=== PATIENT | female | born 1950 | race Caucasian/White ===

== ENCOUNTER → 2016-04-06 | Outpatient (CLI) | payer MEDICARE, OTHER ==
[~2016-04-06] MED LIST: CRANBERRY405 MG PO; CRESTOR40 MG PO; ELIQUIS5 MG PO; KLOR-CON M1010 MEQ PO; LASIX80 MG PO; NORPACE150 MG PO; ZEBETA10 MG PO
== END | disposition short-term general hospital (02) ==
LOC: CLPAIN 09:19
DX: M47.896 Other spondylosis, lumbar region (principal); M41.9 Scoliosis, unspecified

== ENCOUNTER → 2016-04-13 | Outpatient (CLI) | payer MEDICARE, OTHER | END | disposition short-term general hospital (02) | LOC: CLCARD 10:00 | DX: I48.0 Paroxysmal atrial fibrillation (principal); R07.9 Chest pain, unspecified; E78.5 Hyperlipidemia, unspecified; I34.0 Nonrheumatic mitral (valve) insufficiency; I11.0 Hypertensive heart disease with heart failure; I50.30 Unspecified diastolic (congestive) heart failure; Z79.899 Other long term (current) drug therapy ==

== ENCOUNTER → 2016-06-08 | Outpatient (CLI) | payer MEDICARE, OTHER | END | disposition short-term general hospital (02) | LOC: CLPAIN 01:20 | DX: M47.816 Spondylosis without myelopathy or radiculopathy, lumbar region (principal); M46.1 Sacroiliitis, not elsewhere classified; M41.9 Scoliosis, unspecified ==

== ENCOUNTER 2016-06-22 11:28 | Day surgery (SDC) | payer MEDICARE, OTHER | END 2016-06-22 12:50 | disposition short-term general hospital (02) | LOC: SURGOP 11:28 | PROC: 3E0U33Z Introduction of Anti-inflammatory into Joints, Percutaneous Approach (ICD-10-PCS; principal; 2016-06-22) | PROC: 3E0U3BZ Introduction of Anesthetic Agent into Joints, Percutaneous Approach (ICD-10-PCS; 2016-06-22) | DX: M46.1 Sacroiliitis, not elsewhere classified (principal); M47.816 Spondylosis without myelopathy or radiculopathy, lumbar region; M41.9 Scoliosis, unspecified; Z88.6 Allergy status to analgesic agent; Z88.2 Allergy status to sulfonamides; Z88.5 Allergy status to narcotic agent; Z79.01 Long term (current) use of anticoagulants; Z79.899 Other long term (current) drug therapy; Z86.73 Personal history of transient ischemic attack (TIA), and cerebral infarction without residual deficits | CPT/HCPCS: G0260-50; J1040 ==

== ENCOUNTER 2016-07-03 13:02 | Emergency (ER) | payer MEDICARE, OTHER ==
[~2016-07-03] VITALS: Ht 157.5 cm; Wt 68.9 kg
[2016-07-03] MEDS ORDERED: NORPACE150 MG PO (13:42)
[2016-07-03] MEDS ORDERED: ELIQUIS5 MG PO (13:43)
[2016-07-03] MEDS ORDERED: CRANBERRY405 MG PO (13:44)
[2016-07-03] MEDS ORDERED: LASIX80 MG PO (13:44)
[2016-07-03] MEDS ORDERED: KLOR-CON M1010 MEQ PO (13:46)
[2016-07-03] MEDS ORDERED: CRESTOR40 MG PO (13:46)
[2016-07-03] MEDS ORDERED: ZEBETA10 MG PO (13:47)
== END 2016-07-03 15:58 | disposition short-term general hospital (02) ==
LOC: ER 13:02
DX: M51.16 Intervertebral disc disorders with radiculopathy, lumbar region (principal); I48.91 Unspecified atrial fibrillation; N39.0 Urinary tract infection, site not specified; I42.2 Other hypertrophic cardiomyopathy; T45.515A Adverse effect of anticoagulants, initial encounter; E78.00 Pure hypercholesterolemia, unspecified; I11.0 Hypertensive heart disease with heart failure; I50.30 Unspecified diastolic (congestive) heart failure; M85.80 Other specified disorders of bone density and structure, unspecified site; Z86.73 Personal history of transient ischemic attack (TIA), and cerebral infarction without residual deficits; Z90.89 Acquired absence of other organs; Z88.5 Allergy status to narcotic agent; Z88.8 Allergy status to other drugs, medicaments and biological substances; Z88.2 Allergy status to sulfonamides; Z88.1 Allergy status to other antibiotic agents; Z79.899 Other long term (current) drug therapy
CPT/HCPCS: J1885; J2550